=== PATIENT | male | born 1945 | race Caucasian/White ===

== ENCOUNTER 2017-02-02 19:12 | Emergency (ER) | payer MEDICARE, OTHER ==
[2017-02-02] MEDS ORDERED: PROAIR RESPICL90 MCG INH (19:42)
[2017-02-02] MEDS ORDERED: STRIVERDI RESPIM4 GM INH (19:43)
[2017-02-02] MEDS ORDERED: ACID CONTROL150 M2 PO (19:44)
[2017-02-02] MEDS ORDERED: ZOCOR40 M1 PO (19:44)
[2017-02-02] MEDS ORDERED: SPIRIVA RESPIMAT4 G1 INH (19:44)
[2017-02-02] MEDS ORDERED: PRESERVISION A1 EAC5 PO (19:45)
[2017-02-02] MEDS ORDERED: VITAMIN D2000 UNIT PO (19:45)
[2017-02-02] MEDS ORDERED: ELIQUIS5 M1 PO (19:45)
[2017-02-02] MEDS ORDERED: ALBUTEROL2.5 MG/0.1 AERO NEB (19:46)
[2017-02-02] MEDS ORDERED: PREDNISONE20 M1 PO (20:40)
[2017-02-02] MEDS ORDERED: ZITHROMAX250 M1 PO (20:40)
== END 2017-02-02 20:46 ==
LOC: EDMED 19:12
DX: J44.1 Chronic obstructive pulmonary disease with (acute) exacerbation (principal); I48.91 Unspecified atrial fibrillation; Z79.01 Long term (current) use of anticoagulants
CPT/HCPCS: J2930